=== PATIENT | female | born 1960 | race Caucasian/White ===

== ENCOUNTER 2019-04-28 09:11 | Day surgery (SDC) | payer OTHER ==
[~2019-04-28] VITALS: Ht 154.9 cm; Wt 75.8 kg
[2019-04-28 09:41] VITALS: Ht 154.9 cm; Wt 75.8 kg
[2019-04-28] MEDS ORDERED: VITAMIN D (09:47)
[2019-04-28] MEDS ORDERED: CALCIUM (09:47)
[2019-04-28] MEDS ORDERED: ARTHRITIS MEDS (09:47)
[2019-04-28] MEDS ORDERED: GLUCOSAMINE (09:47)
[2019-04-28 09:56] VITALS: BP 135/64; PULSE 62; RESP 18
[2019-04-28] MEDS ORDERED: FENTAnyl 50 MCG/ML VIAL ONE (10:32)
[2019-04-28] MEDS ORDERED: MIDAZOLAM 1 MG/ML 2 ML INJ ONE ×2 (10:32)
== END 2019-04-28 12:48 | disposition home or self-care (01) ==
LOC: GIL 09:11
PROVIDERS: ATTEND Internal Medicine Gastroenterology
DX: Z12.11 Encounter for screening for malignant neoplasm of colon (principal); D12.2 Benign neoplasm of ascending colon
CPT/HCPCS: 45380; 88305; J2250; J3010